=== PATIENT | male | born 1985 | race Caucasian/White ===

== ENCOUNTER 2018-07-20 18:15 | Emergency (ER) | payer BC, OTHER ==
[~2018-07-20] VITALS: Ht 175.3 cm; Wt 140.6 kg
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
[2018-07-20] MEDS ORDERED: METO-387 PO (19:00)
[2018-07-20] MEDS ORDERED: LISI-556 PO (19:00)
[2018-07-20] MEDS ORDERED: NEO/POLY/BAC (NEOSPORIN) OINT 15 GM TUBE TOP SCH (19:00)
[2018-07-20] MEDS ORDERED: KETOROLAC 60 MG/2 ML VIAL IM ONE (19:00)
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
--- NOTE | 2018-07-20 20:46 | NUR ---
Pt. stated his pain had improved. Doctor Lozada notified. Doctor Lozada in to see the patient.
--- NOTE | 2018-07-20 20:55 | NUR ---
6 inch derick wrap given to the patient. The patient also received a rx-hydrocodone take home pack.
[2018-07-20] MEDS ORDERED: RX-HYDROCODONE/APAP 5/325 MG #4 TAB PK PO ONE (20:57)
[2018-07-20] MEDS ORDERED: CYCLOBENZAPRINE 10 MG (FLEXERIL) TAB PO ONE (21:00)
[2018-07-20] MEDS ORDERED: IBUP-1780 PO (21:07)
[2018-07-20] MEDS ORDERED: CYCL10TA9 PO (21:07)
[2018-07-20] MEDS ORDERED: HYDR-3812 PO (21:07)
[2018-07-20 21:11] VITALS: BP 138/76
== END 2018-07-20 21:12 | disposition home or self-care (01) ==
LOC: ER FS 18:17
DX: S70.12XA Contusion of left thigh, initial encounter (principal); S60.512A Abrasion of left hand, initial encounter; Z88.1 Allergy status to other antibiotic agents; Z82.49 Family history of ischemic heart disease and other diseases of the circulatory system; V49.40XA Driver injured in collision with unspecified motor vehicles in traffic accident, initial encounter
CPT/HCPCS: 73552; 73562; 96372

== ENCOUNTER 2021-05-10 15:10 | Outpatient (CLI) | payer OTHER ==
[~2021-05-10 15:10] MED LIST: ACHD5005 PO; CYCL10TA25 PO; IBUP-1780 PO; LISI5TAB20 PO; MTP25TSR PO
== END 2021-05-10 15:30 ==
LOC: SLEEP 15:10
PROVIDERS: ATTEND Nurse Practitioner
DX: G47.33 Obstructive sleep apnea (adult) (pediatric) (principal)
CPT/HCPCS: G0399